=== PATIENT | female | born 1950 | race Native Hawaiian/Other Pacific Islander ===

== ENCOUNTER 2020-09-19 17:36 | Outpatient (CLI) | payer OTHER ==
[2020-09-19 17:50] LABS: PLATELET COUNT 316 K/uL (152-353)
[2020-09-19 18:36] LABS: POTASSIUM 6.9 mmol/L (3.6-5.2)
== END 2020-09-19 21:07 | disposition home or self-care (01) ==
LOC: LAB 17:36
PROVIDERS: ATTEND Nurse Practitioner Family
DX: I10 Essential (primary) hypertension (principal); E78.49 Other hyperlipidemia; F41.1 Generalized anxiety disorder; R53.83 Other fatigue; F32.9 Major depressive disorder, single episode, unspecified; J44.9 Chronic obstructive pulmonary disease, unspecified; J30.2 Other seasonal allergic rhinitis; R60.1 Generalized edema; M96.1 Postlaminectomy syndrome, not elsewhere classified; M06.9 Rheumatoid arthritis, unspecified; L40.9 Psoriasis, unspecified; G47.00 Insomnia, unspecified; Z79.899 Other long term (current) drug therapy
CPT/HCPCS: 80053; 80061; 82306; 83036; 84439; 84443; 85027

== ENCOUNTER 2021-03-18 12:52 | Outpatient (CLI) | payer OTHER ==
[2021-03-18 13:55] LABS: PLATELET COUNT 377 K/uL (152-353)
[2021-03-18 14:24] LABS: POTASSIUM 4.4 mmol/L (3.6-5.2)
== END 2021-03-18 22:04 | disposition home or self-care (01) ==
LOC: LAB 12:52
PROVIDERS: ATTEND Nurse Practitioner Family
DX: Z00.00 Encounter for general adult medical examination without abnormal findings (principal); I10 Essential (primary) hypertension; E78.49 Other hyperlipidemia; R73.03 Prediabetes; Z68.38 Body mass index [BMI] 38.0-38.9, adult; Z79.899 Other long term (current) drug therapy; R53.83 Other fatigue; R53.81 Other malaise; J45.909 Unspecified asthma, uncomplicated
CPT/HCPCS: 80053; 80061; 82306; 82607; 83036; 84439; 84443; 85027